=== PATIENT | female | born 1965 | race American Indian/Alaskan Native ===

== ENCOUNTER 2017-12-22 18:04 | Emergency (ER) | payer BC ==
--- NOTE | 2017-12-22 18:53 | Emergency Department Report ---
Blank Doc - Documentation Documentation: This is a 52-year-old female here reports that she used the Disha Bhavani in vaginal area for detox. It supposed to be a cleanser to cleanse all of the toxin out of her vagina. She reports the Disha Bhavani is stuck in her vagina for 2 days. She is complaining of abdominal cramping. Denies any bleeding. Reports some chills. Abdominal cramping is 1/10 located to her pelvic area. Patient is menopausal and she denies any medical or surgical history. Denies any urinary burning, frequency or urgency. Denies any back pain. PE Abdomen: non-Tender to palpate in all quadrants, normal bowel sounds. No CVA tenderness. Assessment/plan Foreign body in vaginal vault Plan removal Urinalysis
[2017-12-22 19:19] LABS: Bacteria,Urine 1+ /HPF (Negative); Bilirubin,Urine NEG (Negative); Blood,Urine MOD (Negative); Color,Urine Yellow (Yellow); Mucus,Urine FEW /HPF
--- NOTE | 2017-12-22 19:48 | Emergency Department Report ---
ED Female HPI - General Chief complaint: Urogenital-Female Stated complaint: I HAVE A LEIGH ANN JESSA STUCK IN VAG Time Seen by Provider: 12/22/17 18:49 Source: patient Mode of arrival: Ambulatory Limitations: No Limitations - History of Present Illness Initial comments: 52-year-old -[place] female comes in reporting she used a Leigh Ann Jessa in the vagina for detox. Patient reports that their protocol is stuck in her vaginal for 2 days she is complaining of abdominal cramping. She has no past medical history currently takes no medications on a daily basis and has no known drug allergies. She denies any vaginal discharge or vaginal bleeding. -: days(s) (2) Location: suprapubic Severity: mild Severity scale (0 -10): 1 Quality: cramping Consistency: intermittent Improves with: none Worsens with: none Are you Now?: No - Related Data Allergies Allergy/AdvReac Type Severity Reaction Status Date / Time No Known Allergies Allergy Unverified 12/22/17 18:08 ED Review of Systems ROS: Stated complaint: I HAVE A LEIGH ANN JESSA STUCK IN VAG Other details as noted in HPI Constitutional: denies: chills, fever Genitourinary: other (foreign body in vaginal). denies: urgency, dysuria, frequency, discharge ED Past Medical Hx - Past Medical History Previous Medical History?: No - Surgical History Past Surgical History?: No - Social History Smoking Status: Former Smoker Substance Use Type: None ED Physical Exam - General Limitations: No Limitations ED Course Vital Signs 12/22/17 18:08 Temperature 99.5 F Pulse Rate 103 H Respiratory 18 Rate Blood Pressure 156/92 O2 Sat by Pulse 97 Oximetry Critical care attestation.: If time is entered above; I have spent that time in minutes in the direct care of this critically ill patient, excluding procedure time. ED Disposition Clinical Impression: Foreign body in vagina Qualifiers: Encounter type: initial encounter Qualified Code(s): T19.2XXA - Foreign body in vulva and vagina, initial encounter Disposition: - TO HOME OR SELFCARE Is pt being admited?: No Does the pt Need Aspirin: No Condition: Stable Additional Instructions: Please avoid putting foreign objects in vaginal. Please follow-up with your OB/ [facility]. Referrals: PRIMARY CARE, [Primary Care Provider] - 3-5 Days [facility] [Provider Group] - 3-5 Days [facility] [Provider Group] - 3-5 Days Forms: Work/School Release Form(ED)
[2017-12-22 20:22] VITALS: BP 140/83
== END 2017-12-22 20:23 | disposition home or self-care (01) ==
LOC: ED 18:04
DX: T19.2XXA Foreign body in vulva and vagina, initial encounter (principal); X58.XXXA Exposure to other specified factors, initial encounter; Y93.89 Activity, other specified; Y92.89 Other specified places as the place of occurrence of the external cause; Y99.8 Other external cause status
CPT/HCPCS: 81001

== ENCOUNTER 2019-11-07 01:19 | Emergency (ER) | payer BC ==
[2019-11-07 02:00] LABS: Basophils # (Auto) 0.2 K/mm3 (0.0-0.1); Basophils % (Auto) 2.1 % (0.0-1.8); Eosinophils # (Auto) 0.6 K/mm3 (0.0-0.4); Eosinophils % (Auto) 5.9 % (0.0-4.3); Hematocrit 40.8 % (30.3-42.9); Hemoglobin 14.3 gm/dl (10.1-14.3); Lymphocytes # (Auto) 4.3 K/mm3 (1.2-5.4); Mean Corpuscular HGB Conc 35 % (30-34); Mean Corpuscular Volume 81 fl (79-97); Monocytes # (Auto) 0.7 K/mm3 (0.0-0.8); Monocytes % (Auto) 7.4 % (0.0-7.3); Platelet Count 429 K/mm3 (140-440); Red Blood Count 5.05 M/mm3 (3.65-5.03); Red Cell Distribution Width 14.3 % (13.2-15.2)
[2019-11-07 02:13] LABS: BUN/Creatinine Ratio 6; Blood Urea Nitrogen 4 mg/dL (7-17); Calcium 9.7 mg/dL (8.4-10.2); Hemolysis Index 3
[2019-11-07 03:38] VITALS: BP 158/88
== END 2019-11-07 04:16 | disposition home or self-care (01) ==
LOC: ED 01:19
DX: R00.2 Palpitations (principal); Z87.891 Personal history of nicotine dependence; Z87.898 Personal history of other specified conditions
CPT/HCPCS: 36415; 71045; 80048; 82550; 83735; 84443; 84484; 85025; 93005